=== PATIENT | male | born 1995 | race Caucasian/White ===

== ENCOUNTER 2018-09-25 14:36 | Emergency (ER) | payer OTHER ==
[2018-09-25 14:43] VITALS: BP 115/69
[2018-09-25] MEDS ORDERED: TETRACAINE HCL 0.5% OPH SOLN 4 ML OU ONE ×2 (14:44→18:17)
--- NOTE | 2018-09-25 14:46 | ER Document Report ---
ED Medical Screen (RME) - General Chief Complaint: Foreign Body in Eye Stated Complaint: FOREIGN BODY IN EYE Time Seen by Provider: 09/25/18 14:43 Mode of Arrival: Ambulatory Information source: Patient Notes: 23-year-old presents to ED for complaint of metal in his eye. He states he was loosening a pin on a mix of with a pair of pliers when the metal shaving flew into his eye. He states that it does not come out. He states he has a history of a pneumothorax at which time he was shipped a violent they needed to put a chest tube in and then remove his left lower lobe. He is here today for the metal in his eye that is causing him pain. He states he was at work when this happened. I have greeted and performed a rapid initial assessment of this patient. A comprehensive ED assessment and evaluation of the patient, analysis of test results and completion of medical decision making process will be conducted by an additional ED providers. TRAVEL OUTSIDE OF THE [place] IN LAST 30 DAYS: No - Related Data Allergies/Adverse Reactions: No Known Allergies Allergy (Verified 09/25/18 14:38) Past Medical History - Social History Chew tobacco use (# tins/day): No Frequency of alcohol use: None Drug Abuse: None Renal/ Medical History: Denies: Hx Peritoneal Dialysis Physical Exam - Vital signs Vitals: Temp Pulse Resp BP Pulse Ox 97.6 F 71 14 115/69 98 09/25/18 14:41 09/25/18 14:41 09/25/18 14:41 09/25/18 14:41 09/25/18 14:41 Course - Vital Signs Vital signs: Temp Pulse Resp BP Pulse Ox 97.6 F 71 14 115/69 98 09/25/18 14:41 09/25/18 14:41 09/25/18 14:41 09/25/18 14:41 09/25/18 14:41
[2018-09-25] MEDS ORDERED: ERYTHROMYCIN 0.5% OPH OINTMENT 3.5 GM (ER DISP) OP PRN (18:39)
--- NOTE | 2018-09-26 03:08 | ER Document Report ---
Entered by NORTH OWENS SCRIBE 09/25/18 1847 Acting as scribe for:RODNEY GOMEZ DO ED Foreign Body - General Chief Complaint: Foreign Body in Eye Stated Complaint: FOREIGN BODY IN EYE Time Seen by Provider: 09/25/18 14:43 Primary Care Provider: LENY SCHWARTZ MD [ACTIVE STAFF] - Follow up tomorrow (Call in the morning for an appointment. Please bring any Workman's Compensation paperwork.) Mode of Arrival: Ambulatory Information source: Patient Notes: 23-year-old male who presents to the emergency department today with complaints of a foreign body to his right eye. Patient states that he was using pliers to take a bolt off and a shaving of metal flew into his right eye. Patient complains of pain to his right eye with excessive tearing. Patient was at work when this began. Patient does not wear contacts. TRAVEL OUTSIDE OF THE [place] IN LAST 30 DAYS: No - Related Data Allergies/Adverse Reactions: No Known Allergies Allergy (Verified 09/25/18 14:38) Past Medical History - General Information source: Patient - Social History Smoking Status: Never Smoker Cigarette use (# per day): No Chew tobacco use (# tins/day): No Frequency of alcohol use: None Drug Abuse: None Lives with: Family Family History: Reviewed & Not Pertinent Patient has suicidal ideation: No Patient has homicidal ideation: No - Medical History Medical History: Negative Surgical Hx: Negative Review of Systems - Review of Systems Constitutional: No symptoms reported EENT: See HPI, Eye pain - foreign body right eye, Other - excess tearing Cardiovascular: No symptoms reported Respiratory: No symptoms reported Gastrointestinal: No symptoms reported Genitourinary: No symptoms reported Male Genitourinary: No symptoms reported Musculoskeletal: No symptoms reported Skin: No symptoms reported Hematologic/Lymphatic: No symptoms reported Neurological/Psychological: No symptoms reported -: Yes All other systems reviewed and negative Physical Exam - Vital signs Vitals: Temp Pulse Resp BP Pulse Ox 97.6 F 71 14 115/69 98 09/25/18 14:41 09/25/18 14:41 09/25/18 14:41 09/25/18 14:41 09/25/18 14:41 Interpretation: Normal - General General appearance: Appears well, Alert - HEENT Head: Normocephalic, Atraumatic Eyes: Tears Cornea: Embedded foreign body - R eye, 5 o'clock Pupils: PERRL - Respiratory Respiratory status: No respiratory distress Chest status: Nontender Breath sounds: Normal Chest palpation: Normal - Cardiovascular Rhythm: Regular Heart sounds: Normal auscultation Murmur: No - Abdominal Inspection: Normal Distension: No distension Bowel sounds: Normal Tenderness: Nontender Organomegaly: No organomegaly - Back Back: Normal, Nontender - Extremities General upper extremity: Normal inspection, Nontender, Normal color, Normal ROM, Normal temperature General lower extremity: Normal inspection, Nontender, Normal color, Normal ROM, Normal temperature, Normal weight bearing. No: Nazia's sign - Neurological Neuro grossly intact: Yes Cognition: Normal Orientation: AAOx4 Yara Coma Scale Eye Opening: Spontaneous [place] Coma Scale Verbal: Oriented [place] Coma Scale Motor: Obeys Commands [place] Coma Scale Total: 15 Speech: Normal Motor strength normal: LUE, RUE, LLE, RLE Sensory: Normal - Psychological Associated symptoms: Normal affect, Normal mood - Skin Skin Temperature: Warm Skin Moisture: Dry Skin Color: Normal Course - Re-evaluation Re-evalutation: 09/25/18 18:20 Patient with metallic foreign body in right eye 5:00. Removed with 18-gauge needle. Patient with rest during remaining. Will be started on erythromycin ointment here in the emergency department. 09/25/18 18:39 Spoke to ophthalmology Leny Schwartz for follow up tomorrow. Recommends Vigamox and patient bringing Workmen's Comp. paperwork. 09/25/18 18:59 Patient states his eye feels much better, informed about follow up tomorrow. No vision changes. Will call ophthalmology office in the morning and bring Workmen's Comp. paperwork. Stable for discharge. No other injuries or concern s. - Vital Signs Vital signs: Temp Pulse Resp BP Pulse Ox 97.6 F 71 14 115/69 98 09/25/18 14:41 09/25/18 14:41 09/25/18 14:41 09/25/18 14:41 09/25/18 14:41 Procedures - Eye Procedure Right Time completed: 18:20 Eye Irrigated w/ Saline (ccs): 20 Foreign body removal: Right Alcaine Drops Administered: Yes Antibiotic Oinment/Drps Admin: Right eye Slit lamp used: No Discharge - Discharge Clinical Impression: Foreign body, eye Qualifiers: Encounter type: initial encounter Laterality: right Qualified Code(s): T15.91XA - Foreign body on external eye, part unspecified, right eye, initial encounter Condition: Stable Disposition: HOME, SELF-CARE Instructions: Corneal Foreign Body with Rust ([facility]) Prescriptions: Moxifloxacin HCl [Vigamox 0.5% Oph Soln 3 ml] 1 drop OP TID #1 bottle Referrals: LENY SCHWARTZ MD [ACTIVE STAFF] - Follow up tomorrow (Call in the morning for an appointment. Please bring any Workman's Compensation paperwork.) Scribe Attestation: 09/26/18 03:08 I personally performed the services described in the documentation, reviewed and edited the documentation which was dictated to the scribe in my presence, and it accurately records my words and actions. I personally performed the services described in the documentation, reviewed and edited the documentation which was dictated to the scribe in my presence, and it accurately records my words and actions.
== END 2018-09-25 19:19 | disposition home or self-care (01) ==
LOC: EDBD 14:36 → ER 14:36
DX: T15.91XA Foreign body on external eye, part unspecified, right eye, initial encounter (principal); X58.XXXA Exposure to other specified factors, initial encounter; Y99.0 Civilian activity done for income or pay
CPT/HCPCS: 65205; 99283; J3490

== ENCOUNTER 2019-03-16 09:27 | Day surgery (SDC) | payer BC, OTHER ==
[~2019-03-16 09:27] MED LIST: PROPOFOL INJ 200 MG/20 ML VIAL IV ONE
[2019-03-16] MEDS ORDERED: PROPOFOL INJ 200 MG/20 ML VIAL IV ONE (10:09)
--- NOTE | 2019-03-16 10:46 | Operative Report ---
Operative Report DATE OF SURGERY: 03/16/19 Operative Report: The risks, benefits and alternatives of the procedure including the risk of bleeding, perforation requiring surgery have been explained to the patient in detail and informed consent has been obtained. The patient is placed in the left, lateral decubital position. Timeout was called. Propofol medication is administered. Rectal examination is done which did not reveal any masses, tears or fissures. An Olympus videoscope was introduced into the patient's rectum. The scope was then carefully advanced all the way to the cecum. The cecum was identified by the usual anatomical landmarks of the ileocecal valve as well as the appendiceal office. Photodocumentation is obtained. The scope was then sequentially pulled back via the rest segments of the colon including the ascending colon, hepatic flexure, transverse colon, splenic flexure, descending colon and finally into the rectosigmoid portions of the colon. Retroflexion maneuvers performed. The risks benefits and alternatives of the procedure explained to the patient in detail and informed consent is obtained.A GIF Olympus video scope was inserted into the patient's mouth and hypopharynx, the esophagus is identified intubated and insufflated ,the scope was then advanced through the esophagus stomach and duodenum, retroflexion maneuver is done, the esophagus stomach and first and second portions of the duodenum examined. PREOPERATIVE DIAGNOSIS: Blood in stool, change in bowel habits POSTOPERATIVE DIAGNOSIS: Mild terminal ileitis status post biopsy rule out Crohn's disease. Gastritis status post biopsy rule out Helicobacter pylori OPERATION: Colonoscopy with biopsy. EGD with biopsy SURGEON: HAYLEY MORAES ANESTHESIA: LMAC TISSUE REMOVED OR ALTERED: As noted above. COMPLICATIONS: None. ESTIMATED BLOOD LOSS: None. INTRAOPERATIVE FINDINGS: As noted above. PROCEDURE: Patient tolerated the procedure well. No immediate postprocedure complications are noted. Patient is discharged in good condition. Discharge date 03/16/2019. Discharge diet: Regular. Discharge activity: Regular. 2 to 3-week follow-up to discuss findings. Patient is instructed to call the office or proceed to the emergency room should there be any further problems or questions. Wait on the pathology.
[2019-03-16 10:59] VITALS: BP 109/66
== END 2019-03-16 10:58 | disposition home or self-care (01) ==
LOC: END 09:27
PROVIDERS: ATTEND Internal Medicine Gastroenterology
DX: K52.9 Noninfective gastroenteritis and colitis, unspecified (principal); K92.1 Melena; F17.210 Nicotine dependence, cigarettes, uncomplicated; K29.50 Unspecified chronic gastritis without bleeding
CPT/HCPCS: 43239; 45380; 88305 ×2; 00813; J2704; 813